=== PATIENT | male | born 1990 | race Caucasian/White ===

== ENCOUNTER → 2017-01-10 | Outpatient (CLI) | payer MEDICARE, OTHER | LOC: KOH-I 09:26 | DX: S83.242A Other tear of medial meniscus, current injury, left knee, initial encounter (principal) | CPT/HCPCS: 73721 ==

== ENCOUNTER → 2021-07-28 | Day surgery (SDC) | payer MEDICARE, OTHER ==
[~2021-07-28] MED LIST: "DEPAKOTE \\\"ER\\\"500 MG" PO; BACTROBAN OINT22 GM EXT; BAYER CHEWABLE81 MG PO; COLACE100 MG PO; CRESTOR20 MG PO; DITROPAN 5 MG TA5 MG PO; EPSOM SALT PO; FLONASE 0.05% N16 GM; INTUNIV4 MG PO; LOPRESSOR 25 MG25 MG PO; MIRALAX17 GM PO; ONE-DAILY MULT1 EACH PO; PHENERGAN 25 MG25 M1 PO; PROTONIX40 MG PO; RISPERDAL4 MG PO; SINGULAIR10 MG PO; SYNTHROID25 MCG PO; TRAZODONE HCL150 MG PO; TUMS200 MG PO; TYLENOL325 MG PO; VOLTAREN 0.1%2.5 ML OP; ZYRTEC10 MG PO
== END | disposition home or self-care (01) ==
LOC: OR 07:01
DX: D12.3 Benign neoplasm of transverse colon (principal); K62.1 Rectal polyp; K64.0 First degree hemorrhoids; R19.7 Diarrhea, unspecified; I10 Essential (primary) hypertension; E03.9 Hypothyroidism, unspecified; K21.9 Gastro-esophageal reflux disease without esophagitis; F79 Unspecified intellectual disabilities; Z20.822 Contact with and (suspected) exposure to COVID-19
CPT/HCPCS: J2250; J2704; J7040

== ENCOUNTER → 2022-05-14 | Outpatient (CLI) | payer MEDICARE, OTHER | LOC: RAD 13:35 | DX: T14.8XXA Other injury of unspecified body region, initial encounter (principal) | CPT/HCPCS: 71101 ==